=== PATIENT | male | born 1955 | race Caucasian/White ===

== ENCOUNTER 2017-04-26 15:16 | Emergency (ER) | payer BC, OTHER ==
[~2017-04-26] VITALS: Ht 185.4 cm; Wt 100.8 kg
[2017-04-26 15:17] VITALS: BP 117/87
[2017-04-26] MEDS ORDERED: METF850T4 (15:27)
[2017-04-26] MEDS ORDERED: KETOROLAC 30 MG/ML VIAL (J1885) IV ONE (16:45)
--- NOTE | 2017-04-26 17:05 | REP ---
PA and lateral chest: Comparison is 05/30/2015. The lung roberts are clear. The cardiac size is normal The jose raul, mediastinum, and bony thorax are unremarkable. Impression: Negative PA and lateral chest. There is no interval change. Signed by Norbert Vee MD 04/26/2017 04:56 P
[2017-04-26 17:33] LABS: BASO # 0.1 K/mm3 (0.0-0.2); EOS # 0.3 K/mm3 (0.0-0.50); EOS % 2.6 % (0.0-3.0); LARGE UNSTAINED CELL # 0.2 K/mm3 (0.0-0.4); LARGE UNSTAINED CELL % 1.7 % (0.0-4.0); LYMPH # 2.7 K/mm3 (1.5-4.5); LYMPH % 20.6 % (24.0-44.0); MEAN CORPUSCULAR HEMOGLOBIN 32.8 pg (27.0-33.0); MEAN CORPUSCULAR HGB CONC 36.2 g/dl (32.0-36.5); MEAN CORPUSCULAR VOLUME 90.7 fl (80.0-96.0); MONO # 0.9 K/mm3 (0.0-0.8); MONO % 6.5 % (0.0-5.0); NEUTROPHILS # 8.8 K/mm3 (1.8-7.7); NEUTROPHILS % 67.6 % (36.0-66.0); PLATELET COUNT, AUTOMATED 344 k/mm3 (150-450); RED CELL DISTRIBUTION WIDTH 11.8 % (11.5-14.5); WHITE BLOOD COUNT 13.1 K/mm3 (4.0-10.0)
[2017-04-26 17:39] LABS: INR 0.94
[2017-04-26 17:52] LABS: ANION GAP 11 MEQ/L (8-16); BLOOD UREA NITROGEN 18 MG/DL (7-18); CARBON DIOXIDE LEVEL 26 MEQ/L (21-32); CHLORIDE LEVEL 104 MEQ/L (98-107); CREATININE FOR GFR 0.98 MG/DL (0.70-1.30); GLOMERULAR FILTRATION RATE > 60.0 (>49); GLUCOSE, FASTING 92 MG/DL (80-110); POTASSIUM SERUM 4.2 MEQ/L (3.5-5.1); SODIUM LEVEL 141 MEQ/L (136-145)
[2017-04-26 18:01] LABS: ERYTHROCYTE SEDIMENTATION RATE 3 mm/hr (0-20)
[2017-04-26] MEDS ORDERED: HYDR-3713 PO (18:07)
--- NOTE | 2017-04-28 02:16 | ECGEPIP ---
Stationary ECG Study 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 RBBB Electronically Signed On 04-28-2017 2:16:52 EDT by Edmundo Villar
== END 2017-04-26 18:27 | disposition home or self-care (01) ==
LOC: M ED 15:16
DX: M25.512 Pain in left shoulder (principal); R07.89 Other chest pain; E11.9 Type 2 diabetes mellitus without complications; F17.200 Nicotine dependence, unspecified, uncomplicated; Z79.84 Long term (current) use of oral hypoglycemic drugs
CPT/HCPCS: 71020; 80048; 82550; 82553; 83880; 85025; 85379; 85610; 85652; 85730; 86140; 93005; 96374; 99284; J1885

== ENCOUNTER 2019-12-06 11:31 | Observation (INO) | payer BC ==
[~2019-12-06] VITALS: Ht 185.4 cm; Wt 103.7 kg
[~2019-12-06 11:31] MED LIST: HYDR-3713 PO; METF850T4
[2019-12-06] MEDS ORDERED: ASPI81TA85 PO (11:49)
[2019-12-06 12:11] LABS: BASO # 0.1 10^3/uL (0.0-0.2); BASO % 0.4 % (0.0-1.0); EOS % 0.3 % (0.0-3.0); HEMATOCRIT 44.2 % (42.0-52.0); HEMOGLOBIN 15.6 g/dl (13.5-17.5); LYMPH # 1.6 10^3/uL (1.5-5.0); LYMPH % 11.4 % (24.0-44.0); MEAN CORPUSCULAR HEMOGLOBIN 30.8 pg (27.0-33.0); MEAN CORPUSCULAR HGB CONC 35.3 g/dl (32.0-36.5); MEAN CORPUSCULAR VOLUME 87.2 fl (80.0-96.0); MONO % 7.1 % (0.0-5.0); NEUTROPHILS # 10.9 10^3/uL (1.5-8.5); NEUTROPHILS % 80.1 % (36.0-66.0); PLATELET COUNT, AUTOMATED 344 10^3/uL (150-450); RED BLOOD COUNT 5.07 10^6/uL (4.30-6.10); WHITE BLOOD COUNT 13.6 10^3/uL (4.0-10.0)
--- NOTE | 2019-12-06 12:11 | REP ---
Portable chest x-ray: Single view. History: Syncope near-syncope. Comparison study: April 26, 2017. Findings: The lungs are well inflated and clear. The pleural angles are sharp. Cardiomediastinal silhouette and bony thorax are unremarkable. Impression: No active disease. Electronically Signed by Segundo Saleh MD 12/06/2019 12:03 P
[2019-12-06 12:23] LABS: INR 1.06; PROTHROMBIN TIME 13.5 SECONDS (11.8-14.0)
[2019-12-06 12:31] LABS: CK-MB VALUE MASS 4.3 NG/ML (<3.6); CPK CREATINE PHOSPHOKINASE 433 U/L (39-308); MB/CK RELATIVE INDEX 0.99 (< OR =4); TROPONIN I < 0.02 NG/ML (< 0.10)
--- NOTE | 2019-12-06 12:33 | REP ---
CT study of the cervical spine without contrast: History: Trauma. Technique: Helical scanning is acquired and overlapping 2 mm high resolution axial images were generated and reviewed at bone and soft tissue window settings. Coronal and sagittal multiplanar re-formations images are generated. CT findings: There is no evidence of cervical spine element fracture. No skull base fracture is seen. Cervical vertebral body heights are preserved. Alignment is normal. Facet joints are normally aligned bilaterally at each cervical level on multiplanar re-formations images. There is no evidence of intraspinal or paraspinal hematoma. No extra vertebral abnormality is seen. There is however a fairly extensive cervical degenerative disc spondylosis and some facet joint hypertrophy. Large anterior osteophytes are seen at several levels. There is calcification of the posterior longitudinal ligament at the C4-5 level. Diffuse disc bulging is seen at C3-4, C5-6, and C6-7. There is developmental central canal stenosis exaggerated by the diffuse disc bulging at C6-7, C5-6, and C4-5 and C3-4. Bilateral uncovertebral spurring is noted at C3-4. There is left-sided uncovertebral spurring producing neural foraminal narrowing at the C5-6 and C4-5 levels. Impression: Fairly advanced degenerative spondylosis change and multilevel central canal stenosis and neural foraminal narrowing. Otherwise negative CT study of the cervical spine without contrast. No fracture seen. Electronically Signed by Segundo Saleh MD 12/06/2019 12:24 P
--- NOTE | 2019-12-06 12:38 | REP ---
CT brain without contrast: History: Trauma. 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 Bone window settings demonstrate an intact bony calvarium. No skull fracture is visualized. No significant scalp hematoma is appreciated. There is no evidence of intracranial hemorrhage. There is mild physiologic calcification of the basal ganglia. There is minimal generalized atrophy. There is no evidence of hemorrhage, mass, extra-axial fluid collection, or infarction. Impression: No acute intracranial abnormality. No skull fracture seen. Electronically Signed by Segundo Saleh MD 12/06/2019 12:55 P
--- NOTE | 2019-12-06 12:39 | REP ---
Maxillofacial CT study without contrast: History: Trauma. Findings: No mandibular or maxillary fracture is seen. Inferior maxillary spine and nasal bone appear intact. Orbital margins are intact. No intraorbital hematoma is seen. The paranasal sinuses are clear. Bony nasal septum deviates somewhat to the left with a leftward beak. Zygomatic arches are intact. Multiple carious maxillary teeth are noted. A torus mandibulare is noted bilaterally. Impression: Bilateral mandibular luz noted incidentally. No maxillary or mandibular fracture is seen. Electronically Signed by Segundo Saleh MD 12/06/2019 12:56 P
[2019-12-06] MEDS ORDERED: ONDANSETRON 4MG/2ML VIAL (J2405) IV ONE (13:30)
[2019-12-06] MEDS: MORPHINE 2 MG/ML 1ML VIAL (J2270) IV PRN ×2 (13:51→15:24)
--- NOTE | 2019-12-06 13:51 | REP ---
Bilateral shoulder series: Six views. History: Trauma. Findings: Three views of each shoulder demonstrate normal alignment of the glenohumeral and acromioclavicular joints. There is bilateral AC joint osteoarthritic spurring. There is no evidence of fracture or subluxation. Periarticular soft tissues are unremarkable. Impression: Mild AC joint osteoarthritis bilaterally. No traumatic abnormality noted. Electronically Signed by Segundo Saleh MD 12/06/2019 04:13 P
--- NOTE | 2019-12-06 14:38 | ECGEPIP ---
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
[2019-12-06] MEDS ORDERED: MORPHINE 4 MG/ML 1ML VIAL/SYRINGE (J2270) IV PRN (15:45)
[2019-12-06] MEDS ORDERED: GLUCOSE 4 GM CHEW TABLET PO PRN (16:15)
[2019-12-06] MEDS ORDERED: DEXTROSE 50% 50 ML SYRINGE IV PRN (16:15)
[2019-12-06] MEDS ORDERED: OXAZEPAM 10 MG CAP PO PRN (16:15)
[2019-12-06] MEDS ORDERED: GLUCAGON FOR INJ 1 MG VIAL (J1610) SC PRN (16:15)
[2019-12-06] MEDS ORDERED: traMADol 50 MG TAB PO PRN (16:45)
[2019-12-06] MEDS ORDERED: ONDANSETRON 4MG/2ML VIAL (J2405) IV PRN (16:45)
[2019-12-06 17:15] VITALS: BP 136/65
[2019-12-06 17:30] VITALS: BP 136/65
[2019-12-06] MEDS ORDERED: MULTIVITAMIN -ADULT INJECTION 10 ML, THIAMINE INJection 100 MG, FOLIC ACID 1 MG in NS 1... IV ONE (18:00)
[2019-12-06] MEDS: HumaLOG INSULIN (NovoLOG) PER UNIT SC SCH (18:26)
[2019-12-06] MEDS ORDERED: CYCLOBENZAPRINE 10 MG TAB PO ONE (19:00)
--- NOTE | 2019-12-06 19:29 | HPE ---
DATE OF ADMISSION: 12/06/2019 CHIEF COMPLAINT: Fall and left shoulder pain. HISTORY OF PRESENT ILLNESS: This is a 64-year-old alcoholic who was home at 2 a.m. Was drinking about 10-12 beers when he fell over and fell flat on his face in the living room on the floor between the living room and dining room. Patient denied any palpitations, lightheadedness, dizziness, shortness of breath, chest pain, pressure, or tightness. No prior episodes of the past. Has been doing well the past few days without fever, chills, cough, rhinorrhea, sore throat, nausea, vomiting, diarrhea, changes in appetite, or changes in weight. Patient was unsure how long he was on the floor. He was unable to call for help, unable to roll over because of severe weakness of his bilateral arms. Appeared to have been severely intoxicated when his cousin stopped over at 10 a.m. this morning and saw him on the floor. States he was unable to move. The cousin was concerned that he may have had a stroke despite being intoxicated. Cousin was worried that he needed further evaluation for stroke or heart attack. He was therefore brought in by car. Patient is a borderline diabetic but has not been on medications, metformin, because he could not afford it for the past year and a half. His glucose level on arrival was 326. Patient with his cousin's help was able to position him on his back. His right hand was able to help push him over, and he was lying on his back. He felt that he had very little strength in his left hand. Patient had always had neck pain in the past, usually with restricted movement, unable to look up, for about 10 days, when he had a terrible cough and felt that he had "wrecked his back." Aside from the fall today, patient has had no other recent trauma. No fevers or chills at home. No diplopia or photophobia. PAST MEDICAL HISTORY: Prediabetic, not on medications for the past year and half. HOME MEDICATIONS: None. ALLERGIES: None. SOCIAL HISTORY: Lives alone. Retired. 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 Three steps to get into the home. Has railing on the sides. He has two set of stairs to get up to the second floor where the bedroom and bathroom are, half a flight on each side. Patient denies any recreational drug use. Drinks about two to three times a week but drinks heavily, about 10 beers to 12 beers a day. Patient had always been a smoker, two packs to three packs a day. He started in his 20s. Quit about 20 years ago but currently picked up smoking again a few cigarettes. Denied any recreational drug use. Patient has no healthcare proxy. He is a full code. FAMILY HISTORY: Father , age 66, with coronary artery disease (CAD), myocardial infarction ([place]). He had lung cancer on autopsy due to exposure to "atomic blast" in [place] back during the world war. Mother , age 75. She was on dialysis due to traumatic injury to her kidney, which left her with nephrectomy and due to complications. REVIEW OF SYSTEMS: Per history of present illness (HPI). A 12-point system otherwise negative. PHYSICAL EXAMINATION: Temperature 98, pulse 96, sinus rhythm, respiratory rate 18, blood pressure is 138/84, 96% on room air. General: Patient has a bruising along the right side of the face and upper face by the forehead and eyebrow. He has no raccoon's eyes. Patient has no respiratory distress. Able to speak in full sentences. Face is symmetric. Tongue is midline. No cervical lymphadenopathy. Range of motion of the neck is limited to severe pain. Unable to fully flex, extend, and laterally move his neck. There is cervical tenderness around C5-6, radiating to the left shoulder. Left shoulder at the acromioclavicular (AC) joint is tender. There is no bruising. Range of motion is significantly limited with flexion/extension and lateral movements with abduction and adduction limited left greater than the right. Only able to life his arms about 30 degrees. Unable to move his arms above that. Motor function is 4/[address] on the left, 5/5 on the right. Dullness and pain sharpness intact bilaterally. Slight pronator drift on the left. Right is normal. Lungs are clear to auscultation. No wheezing, rales, or rhonchi. Heart: S1, S2, sinus rhythm. No murmurs, rubs, or gallops. Abdomen is soft, nontender, nondistended. Obese abdomen. Positive bowel sounds. No [employer]'s or Salomon Guillermo sign. No costovertebral angle (CVA) tenderness. Extremities: No cyanosis, clubbing. Skin: Warm, dry, well perfused. Motor function, lower extremities, 5/5. No sensory disturbance. Gait was not tested. EKG: Sinus rhythm, ventricular rate of 95, right ventricular hypertrophy. CA interval of 200, QRS 106, QT 350, QTC 403. LABORATORY DATA: Sodium 136, potassium 4.4, chloride 101, bicarbonate 24, BUN 20, creatinine 0.9, ionized calcium 4.8, glucose 325. White count 13, hemoglobin 15, hematocrit 44, platelet count 344, 80% neutrophils. No bandemia. INR 1.06, PT 13.5. Microbiology: None. IMAGING STUDY: Maxillofacial CT, bilateral mandibular luz noted incidentally. No maxillary or mandibular fractures seen. Cervical spine CT: Fairly advanced degenerative spondylosis change, multilevel central canal stenosis, neural foraminal narrowing. Otherwise negative CT without contrast. No fracture seen. CT of the brain: No acute intracranial pathology. Bilateral shoulder mild AC joint arthritis bilaterally. No traumatic abnormality. Lungs are clear and well inflated. Pleural angles are sharp. ASSESSMENT AND PLAN: A 64-year-old male, alcohol. Had about 10 beers last night. Fell over on his face and was on the ground for a few hours before being found by his cousin. IMPRESSION: 1. Fall. Pain medications with tramadol or Percocet as needed, morphine for breakthrough pain as well as Flexeril. Neurologic checks every 4 hours. 2. History of diabetes. Check A1c. Continue on sliding scale and Lispro insulin. May need long-acting Levemir. Hold off on oral hypoglycemics due to recent contrast study. 3. Obesity, body mass index (BMI) of 31. Check lipid panel in the morning. Treat diabetes if A1c is uncontrolled. At risk of hypercapnic respiratory failure and respiratory acidosis, on pain medications. Therefore will check nocturnal oximetry to rule out obstructive sleep apnea. Placed on obstructive sleep apnea (TYRONE) protocol. 4. Alcohol abuse. Clinical [place] Withdrawal Assessment (CIWA) protocol currently. 5. Code status is a full code.
[2019-12-06 20:37] LABS: CK-MB VALUE MASS 3.2 NG/ML (<3.6); CPK CREATINE PHOSPHOKINASE 515 U/L (39-308); ETHYL ALCOHOL (ETHANOL) < 0.003 % (0.000-0.010); MB/CK RELATIVE INDEX 0.62 (< OR =4); TROPONIN I < 0.02 NG/ML (< 0.10)
[2019-12-06 21:00] VITALS: BP 166/84
[2019-12-06] MEDS ORDERED: HumaLOG INSULIN (NovoLOG) PER UNIT SC SCH (21:00)
[2019-12-06] MEDS: CYCLOBENZAPRINE 10 MG TAB PO SCH (21:00)
[2019-12-06 22:00] VITALS: BP 166/84
[2019-12-07 03:14] LABS: BASO # 0.1 10^3/uL (0.0-0.2); BASO % 0.4 % (0.0-1.0); EOS # 0.2 10^3/uL (0.0-0.5); EOS % 1.3 % (0.0-3.0); HEMATOCRIT 42.4 % (42.0-52.0); HEMOGLOBIN 14.6 g/dl (13.5-17.5); LYMPH # 2.3 10^3/uL (1.5-5.0); LYMPH % 18.9 % (24.0-44.0); MEAN CORPUSCULAR HEMOGLOBIN 30.6 pg (27.0-33.0); MEAN CORPUSCULAR HGB CONC 34.4 g/dl (32.0-36.5); MEAN CORPUSCULAR VOLUME 88.9 fl (80.0-96.0); MONO # 1.2 10^3/uL (0.0-0.8); MONO % 9.9 % (0.0-5.0); NEUTROPHILS # 8.4 10^3/uL (1.5-8.5); NEUTROPHILS % 69.2 % (36.0-66.0); PLATELET COUNT, AUTOMATED 303 10^3/uL (150-450); RED BLOOD COUNT 4.77 10^6/uL (4.30-6.10); WHITE BLOOD COUNT 12.2 10^3/uL (4.0-10.0)
[2019-12-07] MEDS: PERCOCET 5MG/325MG TAB PO PRN ×2 (03:18→07:45)
[2019-12-07 03:34] LABS: HEMOGLOBIN A1c 8.7 %
[2019-12-07 03:45] LABS: BLOOD UREA NITROGEN 22 MG/DL (7-18); CALCIUM LEVEL 8.2 MG/DL (8.8-10.2); CARBON DIOXIDE LEVEL 25 MEQ/L (21-32); CHLORIDE LEVEL 108 MEQ/L (98-107); CHOLESTEROL LEVEL 134 MG/DL (<200); CHOLESTEROL RISK RATIO 4.962 (<5); CK-MB VALUE MASS 2.1 NG/ML (<3.6); CPK CREATINE PHOSPHOKINASE 447 U/L (39-308); CREATININE FOR GFR 1.05 MG/DL (0.70-1.30); GLOMERULAR FILTRATION RATE > 60.0 (>49); GLUCOSE, FASTING 192 MG/DL (70-100); HDL CHOLESTEROL 27 MG/DL (>40); LDL CHOLESTEROL 49 MG/DL (<100); MB/CK RELATIVE INDEX 0.47 (< OR =4); NON-HDL-C 107 MG/DL; SODIUM LEVEL 140 MEQ/L (136-145); TRIGLYCERIDES LEVEL 291 MG/DL (<150); TROPONIN I < 0.02 NG/ML (< 0.10)
[2019-12-07 06:00] VITALS: BP 140/72
[2019-12-07] MEDS ORDERED: CYCL10TA PO (07:16)
[2019-12-07] MEDS ORDERED: METF500T13 PO (07:16)
[2019-12-07] MEDS ORDERED: PERC5TAB12 PO (07:16)
--- NOTE | 2019-12-07 07:22 | REP ---
MRI CERVICAL SPINE WITHOUT CONTRAST: HISTORY: Weakness after a fall. Comparison CT study is from earlier this date. TECHNIQUE: Sagittal and axial T1- and T2-weighted scans are acquired in the usual fashion with and without fat saturation. Sequences include spin echo, turbo spin echo, and STIR imaging sequences. MRI FINDINGS: There is straightening of the normal cervical lordosis. Cortical and medullary bone signal intensity are normal in signal. There is no evidence of occult fracture. Inversion recovery images show no evidence of ligament disruption. Craniocervical junction is unremarkable. Axial and sagittal images taken at the C3-4 level demonstrate moderate central canal stenosis due to diffuse disc bulging. There is mild cord compression. There is bilateral uncovertebral spurring producing foraminal narrowing. The mid line AP dimension of the thecal sac at C3-4 is only 5.6 mm. There is subtle T2 hyperintensity in the spinal cord at this level which may reflect myelomalacia or subtle contusion. There is some ligamentum flavum hypertrophy participating in the central canal stenosis at C3-4 as well. At C4-5, there is a small focal disc protrusion on the left with left-sided uncovertebral spurring producing foraminal narrowing. There is diffuse bulging and osteophytic ridging of the remainder of the posterior disc margin. This indents the ventral margin of the thecal sac and flattens the ventral margin of the cord. No chao compression of the cord is seen. At C5-6, there is posterior osteophytic ridging and diffuse disc bulging. Bilateral uncovertebral spurring is seen, left a little more so than right. No cord compression is seen. At C6-C7 there is diffuse posterior disc bulging and osteophytic ridging. Bilateral uncovertebral spurring is seen with bilateral foraminal narrowing. Left slightly more than right. There is mild central canal stenosis at C6-7. The mid line AP dimension of the thecal sac is 7.1 mm. The C7-T1 level is unremarkable. Cervical cord is normal in coarse caliber and signal intensity except at the C3-4. IMPRESSION: Degenerative spondylosis changes. No evidence of fracture or subluxation. The dominant abnormality is at the C3-4 level where there is moderate central canal stenosis due to posterior disc bulging and osteophytic ridging as well as ligamentum flavum hypertrophy. Mild cord compression is seen here and there is a subtle dorsal area of T2 intramedullary increased signal intensity, which may reflect myelomalacia or subtle contusion. Electronically Signed by Segundo Saleh MD 12/07/2019 10:49 A
--- NOTE | 2019-12-07 07:23 | REP ---
MRI THORACIC SPINE WITHOUT CONTRAST: HISTORY: History of a fall. Weakness in the upper extremities. TECHNIQUE: Sagittal and axial T1- and T2-weighted scans are acquired in the usual fashion with and without fat saturation. Sequences include spin echo, turbo spin-echo, and STIR imaging sequences. MRI FINDINGS: Thoracic vertebral body heights are preserved. Alignment is normal. No fracture or collapse is evident. No T2 hyperintense lesion is seen to suggest ligament disruption or occult fracture. The thoracic cord is normal in coarse caliber and signal intensity. The tip of the conus medullaris is normal in position and appearance at L1. No cord compressive lesion is seen. No abnormal fluid collection. No foraminal narrowing is seen. There is mild degenerative disc narrowing and bulging at the T8-9 level. Degenerative narrowing of the disc is seen at T7-8 and T6-7 and T5-6. There is a right posterior disc bulge at the T3-4. IMPRESSION: No traumatic abnormality or cord compressive lesion is seen. Normal cord signal intensity. Mild degenerative disc changes. Electronically Signed by Segundo Saleh MD 12/07/2019 10:49 A
[2019-12-07] MEDS: HumaLOG INSULIN (NovoLOG) PER UNIT SC SCH (07:44)
[2019-12-07] MEDS: CYCLOBENZAPRINE 10 MG TAB PO SCH (07:45)
[2019-12-07] MEDS ORDERED: metFORMIN (GLUCOPHAGE) 500 MG TAB PO SCH (08:00)
[2019-12-07] MEDS ORDERED: MULTIVITAMINS/MINERALS THERAP 1 TAB PO SCH (09:00)
[2019-12-07] MEDS ORDERED: FOLIC ACID 1 MG TAB PO SCH (09:00)
[2019-12-07] MEDS ORDERED: THIAMINE 100 MG TAB PO SCH (09:00)
[2019-12-07] MEDS ORDERED: HumaLOG INSULIN (NovoLOG) PER UNIT SC SCH (12:00)
[2019-12-07] MEDS ORDERED: PERCOCET 5MG/325MG TAB PO ONE (13:00)
[2019-12-07] MEDS ORDERED: MORPHINE 10 MG/ML 1ML VIAL (J2270) IV ONE (13:00)
[2019-12-07] MEDS ORDERED: KETOROLAC 30 MG/ML VIAL (J1885) IV ONE (13:00)
--- NOTE | 2019-12-07 13:00 | DS.PDOC ---
Discharge Summary General Date of Admission Dec 06, 2019 at 15:51 Date of Discharge 12/07/19 Discharge Summary DISCHARGE DIAGNOSES: SYNCOPE SEVERE CENTRAL CANAL SPINAL STENOSIS DM 2 OBESITY ALCOHOL ABUSE/DEPENDENCE DISCHARGE MEDS: PLS SEE BELOW DISCHARGE INSTRUCTIONS: IMMEDIATE FU W PCP WITHIN 3DAYS FOR PAIN MANAGEMENT, ORTHO SPINE IN 1 WK [place] OF SUSTAINABLE DESIGN: ORTHOPEDIC SURGERY-DR ROSE HISTORY OF PRESENTING ILLNESS: This is a 64-year-old alcoholic who was home at 2 a.m. Was drinking about 10-12 beers when he fell over and fell flat on his face in the living room on the floor between the living room and dining room. Patient denied any palpitations, lightheadedness, dizziness, shortness of breath, chest pain, pressure, or tightness. No prior episodes of the past. Has been doing well the past few days without fever, chills, cough, rhinorrhea, sore throat, nausea, vomiting, diarrhea, changes in appetite, or changes in weight. Patient was unsure how long he was on the floor. He was unable to call for help, unable to roll over because of severe weakness of his bilateral arms. Appeared to have been severely intoxicated when his cousin stopped over at 10 a.m. this morning and saw him on the floor. States he was unable to move. The cousin was concerned that he may have had a stroke despite being intoxicated. Cousin was worried that he needed further evaluation for stroke or heart attack. He was therefore brought in by car. Patient is a borderline diabetic but has not been on medications, metformin, because he could not afford it for the past year and a half. His glucose level on arrival was 326. Patient with his cousin's help was able to position him on his back. His right hand was able to help push him over, and he was lying on his back. He felt that he had very little strength in his left hand. Patient had always had neck pain in the past, usually with restricted movement, unable to look up, for about 10 days, when he had a terrible cough and felt that he had "wrecked his back." Aside from the fall today, patient has had no other recent trauma. No fevers or chills at home. No diplopia or photophobia. HOSPITAL COURSE: Patient was kept overnight for PT and ortho evaluation, and was kept on CIWA protocol, flexeril, IV morphine, and percocet PRN. He passed physical therapy and had no neurologic symptoms overnight. Per orthopedic Surgery, Dr. Rsoe, activity as tolerated, no need for further inpatient care, and may fu in office with PA for spine mgt. DISCHARGE PHYSICAL EXAMINATION: VITALS: PLS SEE BELOW General: Patient has a bruising along the right side of the face and upper face by the forehead and eyebrow. He has no raccoon's eyes. HEENT: There is cervical tenderness around C5-6, radiating to the left shoulder. Left shoulder at the acromioclavicular (AC) joint is tender. Lungs are clear to auscultation. No wheezing, rales, or rhonchi. Heart: S1, S2, sinus rhythm. No murmurs, rubs, or gallops. Abdomen is soft, nontender, nondistended. Obese abdomen. Positive bowel sounds. No Andre's or Salomon Guillermo sign. No costovertebral angle (CVA) tenderness. Extremities: No cyanosis, clubbing. Skin: Warm, dry, well perfused. Motor function, lower extremities, 5/5. No sensory disturbance. Gait was not tested. EKG: Sinus rhythm, ventricular rate of 95, right ventricular hypertrophy. UT interval of 200, QRS 106, QT 350, QTC 403. LABORATORY DATA: Sodium 136, potassium 4.4, chloride 101, bicarbonate 24, BUN 20, creatinine 0.9, ionized calcium 4.8, glucose 325. White count 13, hemoglobin 15, hematocrit 44, platelet count 344, 80% neutrophils. No bandemia. INR 1.06, PT 13.5. Microbiology: None. IMAGING STUDY: Maxillofacial CT, bilateral mandibular luz noted incidentally. No maxillary or mandibular fractures seen. greater than the right. Only able to life his arms about 30 degrees. Unable to move his arms above that. 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 Dullness and pain sharpness intact bilaterally. Slight pronator drift on the left. Right is normal. Lungs are clear to auscultation. No wheezing, rales, or rhonchi. Heart: S1, S2, sinus rhythm. No murmurs, rubs, or gallops. Abdomen i s soft, nontender, nondistended. Obese abdomen. Positive bowel sounds. No Andre's or Salomon Guillermo sign. No costovertebral angle (CVA) tenderness. Extremities: No cyanosis, clubbing. Skin: Warm, dry, well perfused. Motor function, lower extremities, 5/5. No sensory disturbance. Gait was not tested. EKG: Sinus rhythm, ventricular rate of 95, right ventricular hypertrophy. UT interval of 200, QRS 106, QT 350, QTC 403. LABORATORY DATA: Sodium 136, potassium 4.4, chloride 101, bicarbonate 24, BUN 20, creatinine 0.9, ionized calcium 4.8, glucose 325. White count 13, hemoglobin 15, hematocrit 44, platelet count 344, 80% neutrophils. No bandemia. INR 1.06, PT 13.5. Microbiology: None. IMAGING STUDY: Maxillofacial CT, bilateral mandibular luz noted incidentally. No maxillary or mandibular fractures seen. Cervical spine CT: Fairly advanced degenerative spondylosis change, multilevel central canal stenosis, neural foraminal narrowing. Otherwise negative CT without contrast. No fracture seen. CT of the brain: No acute intracranial pathology. Bilateral shoulder mild AC joint arthritis bilaterally. No traumatic abnormality. Lungs are clear and well inflated. Pleural angles are sharp. TIME SPENT ON DISCHARGE: 30 MIN Vital Signs/I&Os Vital Signs Date Time Temp Pulse Resp B/P (MAP) Pulse Ox O2 Delivery O2 Flow Rate FiO2 12/07/19 08:15 16 12/07/19 06:00 92 140/72 12/07/19 06:00 98.3 92 12/06/19 16:30 Room Air I&O- Last 24 Hours up to 6 AM 12/07/19 06:00 Intake Total 2050 ml Output Total 400 ml Balance 1650 ml Laboratory Data Labs 24H Laboratory Tests 2 12/06/19 19:46: Total Creatine Kinase 515H, Creatine Kinase MB 3.2, Creatine Kinase MB Relative Index 0.62, Troponin I < 0.02, Ethyl Alcohol Level < 0.003 12/07/19 03:06: Total Creatine Kinase 447H, Creatine Kinase MB 2.1, Creatine Kinase MB Relative Index 0.47, Troponin I < 0.02, Immature Granulocyte % (Auto) 0.3, Neutrophils (%) (Auto) 69.2H, Lymphocytes (%) (Auto) 18.9L, Monocytes (%) (Auto) 9.9H, Eosinophils (%) (Auto) 1.3, Basophils (%) (Auto) 0.4, Neutrophils # (Auto) 8.4, Lymphocytes # (Auto) 2.3, Monocytes # (Auto) 1.2H, Eosinophils # (Auto) 0.2, Basophils # (Auto) 0.1, Nucleated Red Blood Cells % (auto) 0.0, Anion Gap 7L, Glomerular Filtration Rate > 60.0, Estimated Mean Plasma Glucose 203H, Hemoglobin A1c 8.7, Calcium Level 8.2L, Triglycerides Level 291H, Total Cholesterol 134, LDL Cholesterol 49, Non-HDL Cholesterol (LDL + VLDL) 107, Total HDL Cholesterol 27L, Cholesterol/HDL Ratio 4.962 CBC/BMP Laboratory Tests 12/07/19 03:06 Discharge Medications Scheduled Metformin HCl (Metformin HCl) 500 Mg Tablet, 1 TAB PO BID Scheduled PRN Cyclobenzaprine HCl (Cyclobenzaprine HCl) 10 Mg Tablet, 10 MG PO TID PRN for MUSCLE SPASMS Oxycodone HCl/Acetaminophen (Percocet 5-325 mg Tablet) 1 Each Tablet, 1 TAB PO BIDP PRN for pain Allergies Coded Allergies: dog dander (Verified Allergy, Intermediate, SNEEZING, 12/06/19) FORREST RIBEIRO MD Dec 07, 2019 12:58
--- NOTE | 2019-12-08 14:41 | NOCOX ---
DATE OF PROCEDURE: 12/06/2019 INTERPRETATION: Recording nocturnal oximetry was performed on room air. A total of 10 hours and 10 minutes of data was reviewed. Mean oxygen saturation was 94% with a minimum recorded value of 83%, which appears spurious. His typical minimum value is about approximately 85%. He spent 2.7% of the night with saturations 88% or lower for the longest continuous period of time being 26 seconds. There is significant fluctuation in the SpO2 waveform suggestive of sleep disordered breathing. IMPRESSION: 1. Acceptable nocturnal oxygenation on room air. 2. Significant fluctuation in the SpO2 waveform suggestive of sleep disordered breathing. Clinical correlation will be necessary.
--- NOTE | 2019-12-09 22:18 | ECHO ---
DATE OF PROCEDURE: 12/07/2019 AGE: 64 GENDER: Male HEIGHT: 73 inches WEIGHT: 235 pounds BODY SURFACE AREA: 2.3 m2 PATIENT LOCATION: Inpatient, [address] [place] [address], room 4227 REFERRING PHYSICIAN: Noemí Crook MD INDICATION: Syncope. 2-D MEASUREMENTS: RV: 4.2 cm LV: 4.9 cm Septum: 0.9 cm Posterior wall: 0.9 cm Aortic root: 3.2 cm LA: 4.0 cm LVEF: 65% DOPPLER MEASUREMENTS: AV: 0.98 m/s LVOT: 0.94 m/s LVOT diameter: 2.0 cm MV-E: 55, A: 67, EA ratio: 0.8 Early mitral deceleration time: 246 ms E prime medial: 7.4 A prime medial: 8.6 E prime lateral: 10.6 Average EE prime ratio: 6.1/PCWP 9.5 mmHg. PV: 0.6 m/s Pulmonary artery acceleration time: 113 ms PASP: 28 mmHg IVC: 2.2 cm COMMENTS Normal sinus rhythm without intraventricular conduction disturbance. Technically challenging study in light of the patient's body habitus but diagnostically useful information was still obtained. M-mode and two-dimensional echocardiography was performed with pulsed, continuous wave, color flow and tissue Doppler studies. Normal left ventricular size, wall thickness and wall motion. Borderline left atrial enlargement with grade 1 LV diastolic dysfunction but currently normal estimated mean left atrial pressure. Right heart chamber sizes upper limits of normal with normal wall motion and Doppler estimated pulmonary arterial pressure upper limits of normal. Normal IVC size with upper limits of normal with adequate respiratory collapse against an elevated central venous pressure at this time. Normal appearing and functioning valvular structures. Normal aortic diameters. No apparent intracardiac mass or pericardial effusion.
== END 2019-12-07 13:22 | disposition home or self-care (01) ==
LOC: M ED 11:31 → M ED INP 15:51 → ENRESERV 16:08 → M MSPAV 18:04
PROVIDERS: ADMIT General Practice; ATTEND General Practice
DX: R55 Syncope and collapse (principal); M48.02 Spinal stenosis, cervical region; M25.512 Pain in left shoulder; Z91.81 History of falling; E11.9 Type 2 diabetes mellitus without complications; F10.220 Alcohol dependence with intoxication, uncomplicated; Z79.84 Long term (current) use of oral hypoglycemic drugs; F17.218 Nicotine dependence, cigarettes, with other nicotine-induced disorders
CPT/HCPCS: 36415; 70450; 70486; 71045; 72125; 72141; 72146; 73030; 80047; 80048; 80061; 82550; 82553; 83036; 84443; 85025; 85610; 93005; 93041; 93306; 94760; 96361; 96374; 96375; 96376; 97161; 99285; G0480; J2270; J2405; J3411

== ENCOUNTER 2020-10-04 15:02 | Emergency (ER) | payer BC, MEDICARE ==
[~2020-10-04] VITALS: Ht 185.4 cm; Wt 106.7 kg
[~2020-10-04 15:02] MED LIST changes: +ASPI81TA86 PO; +CYCL-707 PO; +METF500T13 PO; +PERC5TAB12 PO
--- NOTE | 2020-10-04 15:55 | REP ---
INDICATION: swelling COMPARISON: None. TECHNIQUE: AP, lateral, bilateral oblique views right foot. FINDINGS: Significant degenerative arthritic changes involve the 1st metatarsophalangeal joint including osteophytosis, periarticular sclerosis with joint space narrowing and subchondral heterogeneity as well as surrounding heterotopic calcification and chondrocalcinosis. Associated soft tissue swelling noted. The remainder of the examination appears relatively normal. No acute fracture or dislocation. IMPRESSION: Significant degenerative changes involving the 1st metatarsophalangeal joint with surrounding soft tissue swelling. <Electronically signed by Bakari Dove > 10/04/20 [id number]
[2020-10-04 17:27] LABS: BASO # 0.1 10^3/uL (0.0-0.2); BASO % 0.6 % (0.0-1.0); EOS # 0.4 10^3/uL (0.0-0.5); EOS % 3.6 % (0.0-3.0); HEMATOCRIT 44.3 % (42.0-52.0); LYMPH # 2.6 10^3/uL (1.5-5.0); LYMPH % 23.5 % (24.0-44.0); MEAN CORPUSCULAR HEMOGLOBIN 30.2 pg (27.0-33.0); MEAN CORPUSCULAR HGB CONC 33.9 g/dl (32.0-36.5); MEAN CORPUSCULAR VOLUME 89.1 fl (80.0-96.0); MONO # 0.9 10^3/uL (0.0-0.8); MONO % 8.1 % (0.0-5.0); NEUTROPHILS # 7.1 10^3/uL (1.5-8.5); NEUTROPHILS % 63.6 % (36.0-66.0); PLATELET COUNT, AUTOMATED 340 10^3/uL (150-450); RED BLOOD COUNT 4.97 10^6/uL (4.30-6.10); WHITE BLOOD COUNT 11.1 10^3/uL (4.0-10.0)
[2020-10-04 18:00] LABS: BLOOD UREA NITROGEN 13 MG/DL (7-18); CALCIUM LEVEL 9.7 MG/DL (8.8-10.2); CARBON DIOXIDE LEVEL 27 MEQ/L (21-32); CHLORIDE LEVEL 107 MEQ/L (98-107); GLOMERULAR FILTRATION RATE > 60.0 (>49); GLUCOSE, FASTING 119 MG/DL (70-100); POTASSIUM SERUM 4.2 MEQ/L (3.5-5.1); SODIUM LEVEL 139 MEQ/L (136-145); URIC ACID 4.3 MG/DL (3.5-7.2)
[2020-10-04 19:27] LABS: HEMOGLOBIN A1c 6.8 %
--- NOTE | 2020-10-04 19:39 | REPVR ---
PROCEDURE INFORMATION: Exam: US Duplex Right Lower Extremity Veins, Limited Exam date and time: 10/04/2020 7:20 PM Age: 65 years old Clinical indication: Pain; Leg, lower; Right; Additional info: Ankle, calf swelling erythema TECHNIQUE: Imaging protocol: Real-time Duplex ultrasound of the Right Lower Extremity with 2-D saucedo scale, color Doppler flow and spectral waveform analysis with image documentation. Limited exam was focused on the right lower extremity veins. COMPARISON: No relevant prior studies available. FINDINGS: Right deep veins: Unremarkable. The common femoral, femoral and popliteal veins are patent without thrombus. Normal Doppler waveforms. Normal compressibility and/or augmentation response. Right superficial veins: Unremarkable. Saphenofemoral junction is patent without thrombus. Soft tissues: Unremarkable. IMPRESSION: No sonographic evidence of deep vein thrombosis. Electronically signed by: Shaheen Molina On 10/04/2020 19:39:51 PM
[2020-10-04] MEDS ORDERED: KEFL500C17 PO (19:48)
[2020-10-04] MEDS ORDERED: CEPHALEXIN 500 MG CAP PO ONE (20:00)
[2020-10-04 20:08] VITALS: BP 146/87
== END 2020-10-04 20:11 | disposition home or self-care (01) ==
LOC: M ED 15:02
DX: L03.115 Cellulitis of right lower limb (principal); E11.9 Type 2 diabetes mellitus without complications; M19.071 Primary osteoarthritis, right ankle and foot

== ENCOUNTER → 2021-11-15 | Outpatient (CLI) | payer MEDICARE ==
[~2021-11-15] MED LIST changes: +KEFL500C17 PO
== END ==
LOC: M RAD 15:11
PROVIDERS: ATTEND Internal Medicine
DX: Z87.891 Personal history of nicotine dependence (principal)

== ENCOUNTER → 2022-01-31 | Outpatient (CLI) | payer MEDICARE ==
[~2022-01-31] MED LIST changes: +HYDR12CA PO; +LOSA25TA13 PO; +ROSU5TAB5 PO
== END ==
LOC: M LABSMTC 10:24
PROVIDERS: ATTEND Anesthesiology
DX: Z01.818 Encounter for other preprocedural examination (principal); Z11.52 Encounter for screening for COVID-19

== ENCOUNTER → 2022-05-06 | Outpatient (CLI) | payer MEDICARE | LOC: M LABSMTC 09:53 | PROVIDERS: ATTEND Anesthesiology | DX: Z20.828 Contact with and (suspected) exposure to other viral communicable diseases (principal); Z11.59 Encounter for screening for other viral diseases ==

== ENCOUNTER 2022-05-09 07:10 | Day surgery (SDC) | payer MEDICARE ==
[~2022-05-09] VITALS: Ht 185.4 cm; Wt 94.3 kg
[~2022-05-09 07:10] MED LIST changes: +LIDOCAINE 2% 100MG/5ML SDV (FOR ANES.) As Ordered ONE; +NS 1,000 ML IV ONE; +propofoL 200 MG/20 ML VIAL As Ordered ONE
[2022-05-09] MEDS ORDERED: propofoL 200 MG/20 ML VIAL As Ordered ONE ×2 (08:27→08:35)
[2022-05-09 10:20] VITALS: BP 166/86
== END 2022-05-09 10:31 | disposition home or self-care (01) ==
LOC: M OPP 07:10
PROVIDERS: ATTEND Internal Medicine Gastroenterology
DX: R19.5 Other fecal abnormalities (principal); K63.5 Polyp of colon; K64.1 Second degree hemorrhoids; K57.30 Diverticulosis of large intestine without perforation or abscess without bleeding; I10 Essential (primary) hypertension; E78.5 Hyperlipidemia, unspecified; E11.9 Type 2 diabetes mellitus without complications; G47.30 Sleep apnea, unspecified; Z87.891 Personal history of nicotine dependence; Z79.84 Long term (current) use of oral hypoglycemic drugs; Z79.899 Other long term (current) drug therapy

== ENCOUNTER → 2023-01-04 | Outpatient (CLI) | payer MEDICARE ==
[~2023-01-04] MED LIST changes: -LIDOCAINE 2% 100MG/5ML SDV (FOR ANES.) As Ordered ONE; -NS 1,000 ML IV ONE; -propofoL 200 MG/20 ML VIAL As Ordered ONE
== END ==
LOC: M RAD 14:54
PROVIDERS: ATTEND Internal Medicine
DX: Z12.2 Encounter for screening for malignant neoplasm of respiratory organs (principal); Z87.891 Personal history of nicotine dependence

== ENCOUNTER → 2023-03-18 | Outpatient (REF) | payer MEDICARE | LOC: M LAB REF 16:32 | PROVIDERS: ATTEND Internal Medicine | DX: G62.9 Polyneuropathy, unspecified (principal) ==

== ENCOUNTER → 2024-05-18 | Outpatient (CLI) | payer MEDICARE ==
[~2024-05-18] MED LIST changes: +PROHANCE 279.3MG/ML 15ML VIAL ONE; +PROHANCE 279.3MG/ML 5ML VIAL ONE; +ROSU5TAB40 PO; -ROSU5TAB5 PO
== END ==
LOC: M PLAIMG 13:19
PROVIDERS: ATTEND Internal Medicine
DX: R29.818 Other symptoms and signs involving the nervous system (principal); R20.2 Paresthesia of skin
CPT/HCPCS: 70544; 70549; 70553; A9576

== ENCOUNTER → 2024-12-25 | Outpatient (REF) | payer MEDICARE ==
[~2024-12-25] MED LIST changes: -PROHANCE 279.3MG/ML 15ML VIAL ONE; -PROHANCE 279.3MG/ML 5ML VIAL ONE; -ROSU5TAB40 PO; +ROSU5TAB49 PO
[2024-12-25 13:39] LABS: RSV AMPLIFICATION NEGATIVE (NEGATIVE)
== END ==
LOC: M LAB REF 12:16
PROVIDERS: ATTEND Nurse Practitioner Family
DX: R53.83 Other fatigue (principal); R05.9 Cough, unspecified

== ENCOUNTER → 2025-05-05 | Outpatient (CLI) | payer MEDICARE ==
[~2025-05-05] MED LIST changes: +HYDR12.510 PO; -HYDR12CA PO
== END ==
LOC: M RAD 08:52
PROVIDERS: ATTEND Internal Medicine
DX: Z12.2 Encounter for screening for malignant neoplasm of respiratory organs (principal); F17.211 Nicotine dependence, cigarettes, in remission; I70.0 Atherosclerosis of aorta